=== PATIENT | male | born 1975 | race Caucasian/White ===

== ENCOUNTER 2022-11-06 17:35 | Emergency (ER) | payer BC ==
[2022-11-06 17:53] VITALS: BP 124/68; PULSE 68; RESP 16; TEMP 97.6; BMI 22.0
[2022-11-06] MEDS ORDERED: ONDANSETRON 4 MG/2 ML VIAL ONE (18:01)
[2022-11-06] MEDS ORDERED: KETOROLAC TROMETHAMINE 30 MG/1 ML VIAL IM ONE (18:20)
[2022-11-06] MEDS ORDERED: KETOROLAC TROMETHAMINE 30 MG/1 ML VIAL ONE (18:34)
== END 2022-11-06 19:17 | disposition home or self-care (01) ==
LOC: JERFT 17:35
PROC: 3E0233Z Introduction of Anti-inflammatory into Muscle, Percutaneous Approach (ICD-10-PCS; principal; 2022-11-06)
DX: M54.50 Low back pain, unspecified (principal); M62.830 Muscle spasm of back; X50.0XXA Overexertion from strenuous movement or load, initial encounter
CPT/HCPCS: 99284-25